=== PATIENT | male | born 1990 | race Caucasian/White ===

== ENCOUNTER → 2020-12-14 | Outpatient (CLI) | payer OTHER, SELFPAY | LOC: KOH-I 08:00 | DX: R74.8 Abnormal levels of other serum enzymes (principal); K76.0 Fatty (change of) liver, not elsewhere classified | CPT/HCPCS: 76700 ==

== ENCOUNTER → 2022-07-12 | Outpatient (CLI) | payer OTHER | LOC: KOH-I 09:00 | DX: R41.82 Altered mental status, unspecified (principal); R47.9 Unspecified speech disturbances | CPT/HCPCS: 70450 ==